=== PATIENT | female | born 1995 | race Two or more races ===

== ENCOUNTER 2019-03-17 01:30 | Emergency (ER) | payer OTHER ==
[2019-03-17 02:24] VITALS: BP 127/84; PULSE 89; TEMP 98.1; BMI 20.3
[2019-03-17] MEDS ORDERED: IBUPROFEN 400 MG TABLET (FP) PO ONE ×2 (03:17→03:26)
--- NOTE | 2019-03-17 03:34 | PDOC ---
*Physical Exam - Vital Signs Last Vital Signs Temp Pulse Resp BP Pulse Ox 98.1 F 89 20 127/84 100 03/17/19 01:45 03/17/19 01:45 03/17/19 01:45 03/17/19 01:45 03/17/19 01:45 ED Treatment Course - Medications Given in the ED: ED Medications Discontinued Medications Generic Name Dose Route Start Last Admin Trade Name Freq PRN Reason Stop Dose Admin Ibuprofen 800 mg 03/17/19 03:17 03/17/19 03:27 Motrin - PO 03/17/19 03:18 800 mg ONCE ONE Administration Medical Decision Making - Medical Decision Making 03/17/19 03:52 The patient was seen and evaluated in conjunction with RAN Gomez under my direct supervision, ancillary studies were reviewed. I agree with the plan as outlined by RAN Gomez . 23-year-old female presenting after she had her finger caught in a door. Patient presenting with pain in her distal index finger. No associated numbness , tingling, weakness, bleeding. + Subungual hematoma X-ray negative for fracture subungal hematoma trephinated by RAN Timmons will dc with supportive care
--- NOTE | 2019-03-17 04:21 | PDOC ---
History of Present Illness - General Chief Complaint: Injury Stated Complaint: FINGER INJURY Time Seen by Provider: 03/17/19 02:40 History Source: Patient Exam Limitations: No Limitations Past History - Past Medical History Allergies/Adverse Reactions: Allergies Allergy/AdvReac Type Severity Reaction Status Date / Time No Known Allergies Allergy Verified 03/17/19 02:23 Home Medications: Ambulatory Orders NK [No Known Home Medication] 02/27/16 COPD: No - Immunization History Immunization Up to Date: Yes - Suicide/Smoking/Psychosocial Hx Smoking History: Never smoked Have you smoked in the past 12 months: No Information on smoking cessation initiated: No Hx Alcohol Use: No Drug/Substance Use Hx: No *Physical Exam - Vital Signs Last Vital Signs Temp Pulse Resp BP Pulse Ox 98.1 F 89 20 127/84 100 03/17/19 01:45 03/17/19 01:45 03/17/19 01:45 03/17/19 01:45 03/17/19 01:45 - Physical Exam General Appearance: No: Apparent Distress Musculoskeletal: positive: Other (+subungal hematoma of L index finger, bruise along volar aspect of L distal phalanx, no deformity, no evidence of damage to tendon) Extremity: positive: Normal Capillary Refill Integumentary: positive: Swelling, Ecchymosis Neurologic: positive: Alert, Normal Mood/Affect ED Treatment Course - RADIOLOGY Radiology Studies Ordered: Category Date Time Status FINGER(S) LEFT [RAD] Stat Radiology 03/17/19 02:14 Taken - Medications Given in the ED: ED Medications Discontinued Medications Generic Name Dose Route Start Last Admin Trade Name Freq PRN Reason Stop Dose Admin Ibuprofen 800 mg 03/17/19 03:17 03/17/19 03:27 Motrin - PO 03/17/19 03:18 800 mg ONCE ONE Administration Medical Decision Making - Medical Decision Making 23 y/o F with no sig pmh presents s/p injury to L index finger around 11 PM. Patient got finger caught in door. Denies other trauma Xrays negative for fracture Not suspicious for tendon injury based on exam Subungal hematoma drained Stable for dc 03/17/19 04:17 *DC/Admit/Observation/Transfer Diagnosis at time of Disposition: Hematoma, subungual, finger Qualifiers: Encounter type: initial encounter Qualified Code(s): S60.10XA - Contusion of unspecified finger with damage to nail, initial encounter - Discharge Dispostion Disposition: HOME Condition at time of disposition: Stable Decision to Admit order: No - Referrals - Patient Instructions Printed Discharge Instructions: DI for Subungual Hematoma Additional Instructions: Thank you for choosing [facility]. It was a pleasure taking care of you. You may take Motrin 600 mg every 6 hours by mouth as needed for mild to moderate pain. Take Motrin with food. Ice the site of swelling/bruise for the next 2 days as needed Your nail will eventually fall off and a new nail will grow Keep finger dry and clean Follow-up with your doctor in 2-3 days Return to the Emergency Department if your symptoms worsen or persist, you have fever, redness, pustular drainage, streaking from site or other concerning symptoms. - Post Discharge Activity
== END 2019-03-17 04:26 | disposition home or self-care (01) ==
LOC: JER 01:30
PROC: 0H9QXZZ Drainage of Finger Nail, External Approach (ICD-10-PCS; principal; 2019-03-17)
DX: S60.122A Contusion of left index finger with damage to nail, initial encounter (principal); W23.1XXA Caught, crushed, jammed, or pinched between stationary objects, initial encounter; Y93.89 Activity, other specified; Y92.89 Other specified places as the place of occurrence of the external cause
CPT/HCPCS: 73140-TC-LT-FY; 99281-25